=== PATIENT | male | born 1945 | race Caucasian/White ===

== ENCOUNTER 2016-10-02 09:50 | Emergency (ER) | payer MEDICARE, MEDICAID | END 2016-10-02 14:43 | disposition home or self-care (01) | LOC: ER 09:50 | DX: R07.9 Chest pain, unspecified (principal); M25.561 Pain in right knee; Z86.73 Personal history of transient ischemic attack (TIA), and cerebral infarction without residual deficits; Z87.891 Personal history of nicotine dependence | CPT/HCPCS: 36415; 71010; 80053; 82550; 83735; 84484; 85025; 85610; 85730; 93005 ==